=== PATIENT | female | born 1940 | race Caucasian/White ===

== ENCOUNTER 2018-04-29 05:59 | Day surgery (SDC) | payer MEDICARE, BC ==
[2018-04-29 06:39] LABS: ANION GAP 16.7 mmol/L (8-16); CALCIUM 9.1 mg/dL (8.5-10.1); CARBON DIOXIDE 26.2 mmol/L (21.0-32.0); CREATININE - SERUM 0.9 mg/dL (0.6-1.3)
[2018-04-29 06:40] LABS: BASOPHILS 0.6 % (0-2); EOSINOPHILS 1.3 % (0-7); HEMATOCRIT 31.3 % (36.0-48.0); HEMOGLOBIN 9.5 g/dL (12-16); IMMATURE GRANULOCYTES 0.2 % (0-5); LYMPHOCYTES 44.2 % (15-50); MCH 20.3 pg (26.0-34.0); MCHC 30.4 g/dL (31.0-37.0); MONOCYTES 12.5 % (2-11); NEUTROPHILS 41.2 % (40-80); PLATELET COUNT 141 10x3/uL (130-400); RBC 4.67 10x6/uL (4.00-5.40); RDW 19.1 % (11.5-14.5); WBC 5.3 10x3/uL (4.8-10.8)
[2018-04-29] MEDS ORDERED: K-TAB10 MEQ PO (07:03)
[2018-04-29] MEDS ORDERED: PLAVIX75 MG PO (07:03)
[2018-04-29] MEDS ORDERED: ZOCOR40 MG PO (07:03)
[2018-04-29] MEDS ORDERED: HYDROCHLOROTHIA50 MG PO (07:04)
[2018-04-29] MEDS ORDERED: XALATAN 0.0052.5 ML EACH EYE (07:04)
[2018-04-29] MEDS ORDERED: OMEPRAZOLE40 MG PO (07:04)
[2018-04-29] MEDS ORDERED: CLOBETASOL PROP50 ML TOPICAL (07:05)
[2018-04-29] MEDS ORDERED: VOLTAREN100 GM TOPICAL (07:05)
[2018-04-29 07:06] LABS: POTASSIUM - SERUM 2.9 mmol/L (3.5-5.1)
[2018-04-29] MEDS ORDERED: TOPROL XL100 MG PO (07:06)
[2018-04-29] MEDS ORDERED: KLONOPIN0.5 MG PO (07:06)
--- NOTE | 2018-04-29 10:07 | NUR ---
PT REFUSED TO TAKE THE POTASSIUM. STATES SHE WILL TAKE HER OWN POTASSIUM. SHE STATES HER INSURANCE WON'T COVER THE COST.
--- NOTE | 2018-04-29 10:13 | NUR ---
DC INSTRUCTIONS GIVEN TO PT/FAMILY. STATE UNDERSTANDING. DC'D IV CATH FULLY INTACT
--- NOTE | 2018-04-29 10:22 | NUR ---
PT LEFT UNIT VIA WC AT 1015
--- NOTE | 2018-04-30 12:17 | OP ---
PATIENT NAME: CHRISTOPHE TATE MEDICAL RECORD: [id number] :41 LOCATION:[facility] ADMISSION DATE: SURGEON: GERI BABCOCK DO DATE OF OPERATION: 04/29/2018 PROCEDURE: Colonoscopy with polypectomy. INDICATIONS FOR PROCEDURE: Chronic constipation and hematochezia. SCOPE: Pansieve video pediatric colonoscope. MEDICATIONS: Propofol 380 mg IV per anesthesia. WITHDRAWAL TIME: 20 minutes. ESTIMATED BLOOD LOSS: Minimal. COMPLICATIONS: None. FINDINGS: Informed consent was given. The patient was made comfortable with the above medication. After reaching an adequate level of sedation by slow IV push, the patient was placed on her left side. A digital rectal examination was performed and was normal. There was no evidence of external hemorrhoids present. The endoscope was advanced under direct visualization through the rectum to the cecum and terminal ileum. The appendiceal orifice was identified. The endoscope was slowly withdrawn and mucosa was carefully examined. Prep quality was good. There were 3 polyps visualized on today's examination. The first was located in the ascending colon. It was a benign appearing sessile polyp, which measured approximately 2-3 mm in diameter. It was removed using hot forceps. Another polyp was located in the descending colon. It was a benign appearing sessile polyp, which measured approximately 4 mm in diameter. It was removed using a hot snare. In the rectum, there was a larger polyp, which was semi-pedunculated that had an ulcerated tip. It was felt that this is the likely cause of the patient's intermittent bleeding. The polyp itself measured approximately 9 mm in diameter. It was removed using a hot snare. In the sigmoid colon, there was evidence of mild diverticulosis without evidence of diverticulitis. Retroflexion was performed in the rectum with visualization of grade I internal hemorrhoids without bleeding. The endoscope was withdrawn from the patient. The patient tolerated the procedure well and there were no complications. IMPRESSION: 1. Three polyps as described above, removed using a combination of hot forceps and a hot snare. 2. Mild diverticulosis of the sigmoid colon. 3. Grade I internal hemorrhoids without bleeding. PLAN AND RECOMMENDATIONS: 1. Discharge home when recovery parameters are met. 2. Follow up biopsy specimen results. 3. High fiber diet. 4. Continue current medications. 5. Trial of Linzess 145 mcg daily. 6. Proceed with EGD as scheduled. 7. Recall colonoscopy in 3 years, likely. Final recommendations will be OPERATIVE REPORT [id number] CHRISTOPHE TATE dependent on pathology results. TRANSINT:[id number] Voice Confirmation ID: [id number] DOCUMENT ID: [id number] GERI BABCOCK DO at 1217 CC: [id number] DICTATION DATE: 04/29/18912 DIRECTOR OF PEOPLE: 04/29/18 1150 [facility] 04/29/[address] [id number]
[2018-05-01 06:18] VITALS: BMI 28.2
== END 2018-04-29 10:15 | disposition home or self-care (01) ==
LOC: D.OPS 05:59
PROVIDERS: Anesthesiology; ATTEND Internal Medicine Gastroenterology
DX: D12.2 Benign neoplasm of ascending colon (principal); D12.4 Benign neoplasm of descending colon; K62.1 Rectal polyp; K57.30 Diverticulosis of large intestine without perforation or abscess without bleeding; K64.0 First degree hemorrhoids; Z01.812 Encounter for preprocedural laboratory examination

== ENCOUNTER 2018-05-01 05:10 | Day surgery (SDC) | payer MEDICARE, BC ==
[2018-04-29 07:15] VITALS: BP 154/69; BMI 28.2
[~2018-05-01] VITALS: Ht 160 cm; Wt 72.3 kg
--- NOTE | ~2018-05-01 | OP ---
PATIENT NAME: CHRISTOPHE TATE MEDICAL RECORD: [id number] :41 LOCATION:[facility] ADMISSION DATE: SURGEON: GERI BABCOCK DO DATE OF OPERATION: 05/01/2018 PROCEDURE: EGD with biopsies. INDICATIONS FOR PROCEDURE: Heartburn and nausea. SCOPE: Olympus video gastroscope. MEDICATIONS: Propofol 350 mg IV per anesthesia. ESTIMATED BLOOD LOSS: Minimal. COMPLICATIONS: None. FINDINGS: Informed consent was given. The patient was made comfortable with the above medication. After reaching an adequate level of sedation by slow IV push, the patient was placed on her left side. The endoscope was advanced under direct visualization through the mouth to the second portion of the duodenum with ease. The entire esophagus appeared normal. At the GE junction, there were minor changes consistent with LA class A reflux-induced esophagitis. The endoscope was advanced beyond the GE junction into the stomach and retroflexed to view the cardia, which appeared normal. The fundus and body of the stomach appeared normal. The endoscope was advanced down to the antrum and prepyloric regions, which also appeared normal. Random gastric biopsies were taken to submit for histopathology and to rule out the presence of H. pylori. The endoscope was advanced beyond the pylorus into the duodenum. The bulb of the duodenum showed some very superficial ulcerations and some erythema and granularity consistent with duodenitis. This is likely reactive. The second portion of the duodenum appeared normal. The endoscope was then withdrawn from the patient. The patient tolerated the procedure well and there were no complications. IMPRESSION: 1. LA class A reflux-induced esophagitis. 2. Duodenitis. PLAN AND RECOMMENDATIONS: 1. Discharge home when recovery parameters are met. 2. Follow up biopsy specimen results. 3. GERD diet and reflux precautions. 4. Continue current medications. 5. Follow up in GI clinic as needed. TRANSINT:[id number] Voice Confirmation ID: [id number] DOCUMENT ID: [id number] OPERATIVE REPORT [id number] CHRISTOPHE TATE GERI BABCOCK DO CC: [id number] DICTATION DATE: 05/01/18 0757 [employer]: 05/01/18 0904 [facility] 05/01/18 [place] [address]
[~2018-05-01 05:10] MED LIST: CLOBETASOL PROP50 ML TOPICAL; HYDROCHLOROTHIA50 MG PO; K-TAB10 MEQ PO; KLONOPIN0.5 MG PO; OMEPRAZOLE40 MG PO; PLAVIX75 MG PO; TOPROL XL100 MG PO; VOLTAREN100 GM TOPICAL; XALATAN 0.0052.5 ML EACH EYE; ZOCOR40 MG PO
[2018-05-01 06:13] LABS: CALCIUM 8.6 mg/dL (8.5-10.1); CARBON DIOXIDE 22.5 mmol/L (21.0-32.0); CREATININE - SERUM 0.9 mg/dL (0.6-1.3)
[2018-05-01 06:18] VITALS: BP 145/56; Ht 160 cm; Wt 72.3 kg
[2018-05-01 06:22] LABS: POTASSIUM - SERUM 3.5 mmol/L (3.5-5.1)
--- NOTE | 2018-05-01 08:35 | NUR ---
DC INSTRUCTIONS GIVEN TO PT/FAMILY. STATE UNDERSTANDING. DC'D IV CATH FULLY INTACT.
--- NOTE | 2018-05-01 08:43 | NUR ---
PT LEFT UNIT VIA WC AT 0881
[2018-05-01 15:57] LABS: HEMATOCRIT 31.5 % (36.0-48.0); HEMOGLOBIN 9.2 g/dL (12-16); MCH 20.2 pg (26.0-34.0); MCHC 29.2 g/dL (31.0-37.0); RBC 4.55 10x6/uL (4.00-5.40); RDW 19.7 % (11.5-14.5); WBC 5.5 10x3/uL (4.8-10.8)
[2018-05-01 16:01] LABS: MCV 69.2 fL (80.0-100.0); PLATELET COUNT 106 10x3/uL (130-400)
== END 2018-05-01 08:44 | disposition home or self-care (01) ==
LOC: D.OPS 05:10
PROVIDERS: Anesthesiology; ATTEND Internal Medicine Gastroenterology
DX: K21.0 Gastro-esophageal reflux disease with esophagitis (principal); K29.80 Duodenitis without bleeding; Z01.812 Encounter for preprocedural laboratory examination